=== PATIENT | male | born 1960 | race African-American/Black ===

== ENCOUNTER → 2017-03-23 | Day surgery (SDC) | payer OTHER ==
[~2017-03-23] MED LIST: NAPROXEN375 M1 PO
--- NOTE | ~2017-03-23 | OR ---
Unit #: [id number] #: [id number] Patient: KASANDRA MESSER [id number] [address] [place], [place] [address] [id number] MR#: [id number] NAME: KASANDRA MESSER ROOM: Date of Procedure: 03/23/2017 Admission Date: 03/23/2017 Surgeon: Cuba Miranda M.D. : 1960 Attending Physician: Cuba Miranda M.D. Primary Care Physician: Primary Care Physician No OPERATIVE REPORT PREOPERATIVE DIAGNOSES 1. Incarcerated right inguinal hernia. 2. Ventral hernia. 3. Superficial skin tumor. POSTOPERATIVE DIAGNOSES 1. Incarcerated right indirect inguinal hernia. 2. Incarcerated 2 cm ventral hernia. 3. Superficial skin to left flank. PROCEDURES PERFORMED 1. Laparoscopic preperitoneal inguinal hernia repair of incarcerated right inguinal hernia. 2. Laparoscopic ventral hernia repair of incarcerated ventral hernia with 6 inch circumference Ventralight mesh. 3. Excision of superficial skin tumor. INCOME TAX CONSULTANT Stew Ortez M.D. ANESTHESIA General anesthesia. ESTIMATED BLOOD LOSS 40 mL. IV FLUIDS 1 L crystalloid. COMPLICATIONS None. INDICATIONS FOR PROCEDURE The patient is a 56-year-old gentleman, who presents with a large right inguinal hernia as well as a ventral hernia. He also has skin neoplasm on his left flank. He presents for operative management. DESCRIPTION OF PROCEDURE The patient was taken to the operating theater and placed in supine position. General anesthesia was induced. His abdomen and left flank were prepped and draped. A 5-mm Optiview trocar was placed in the left upper quadrant without difficulty. The abdomen was insufflated to 15 mmHg Unit #: [id number] #: [id number] Patient: KASANDRA MESSER with CO2. The patient was placed in Trendelenburg. I identified a large right-sided indirect inguinal hernia incarcerated as well as incarcerated 2 cm ventral hernia. I placed left lower quadrant 10 mm port. I was able to reduce the ventral hernia with gentle traction. I then was able to reduce the right inguinal hernia. The patient had a sliding type hernia with part of the cecum forming the wall of the hernia sac. I thus released my pneumoperitoneum. I then made an infraumbilical incision. I then dissected down the anterior sheath, incised the anterior sheath and created the preperitoneal space on the right side only using the AutoSuture balloon dissection system. I placed two 5-mm ports in the midline. I dissected the right groin, identifying the lateral space. I identified Chapin's ligament. There was no evidence of a direct hernia. I then skeletonized the cord, separate the cord from the hernia sac. I then transected the hernia sac high next to the external ring. Upon excising the hernia sac, I got pretty close to the colon. I did not perforate the colon. There was an area that looked somewhat questionable on the wall of the colon. Thus, I excised that area using the LAVERNE stapler through a 10 mm port site in the preperitoneal space. I was then able to reduce the hernia completely. I placed a large 3DMax mesh into position. This was anteriolized and secured with the tacker to the lateral anterior musculature and the Chapin ligament. This covered the direct and indirect spaces nicely. I then released the pneumopreperitoneum. I then re-insufflated the abdomen. I placed a 6-inch Ventralight mesh over the ventral hernia. This was secured with the tacking device with each tack being 1.5 cm from the previous tack. This covered the defect by at least 5 cm in all circumference. Hemostasis was adequate. I removed the ports under direct vision and closed the wounds with stapler. The sutures were cut at skin level. I then excised the skin lesion. This was excised with a knife and then closed with rachel. The patient tolerated the procedure well and sent to recovery room in good condition. Dictated by... Bia Phillips/dane TD: 03/23/2017 20:09 JOB #: [id number] OPERATIVE REPORT Page 1 of 1 X Cuba Miranda MD PROCEDURE OPERATIVE NOTE
== END | disposition home or self-care (01) ==
LOC: CSUR 12:36
DX: K40.30 Unilateral inguinal hernia, with obstruction, without gangrene, not specified as recurrent (principal); K43.6 Other and unspecified ventral hernia with obstruction, without gangrene; D17.1 Benign lipomatous neoplasm of skin and subcutaneous tissue of trunk; M19.90 Unspecified osteoarthritis, unspecified site; M06.9 Rheumatoid arthritis, unspecified; F17.210 Nicotine dependence, cigarettes, uncomplicated; Z79.899 Other long term (current) drug therapy
CPT/HCPCS: 88304; C1781; J0131; J0690; J1170; J1644; J2250; J2270; J2405; J3010